=== PATIENT | male | born 1960 | race Hispanic/Latino ===

== ENCOUNTER 2016-06-27 13:56 | Emergency (ER) | payer MEDICARE, MEDICAID ==
[~2016-06-27] VITALS: Ht 172.7 cm; Wt 76.4 kg
[~2016-06-27 13:56] MED LIST: CA C1TAB28 PO; CALC-858 PO; OMEP-113 PO; ONDA8TAB10 PO
[2016-06-27 14:05] VITALS: BP 136/102; PULSE 50; RESP 26; O2SAT 100
--- NOTE | 2016-06-27 14:12 | ED.REPORT ---
HPI-Abd Pain M 40 and Over Date of Service Jun 27, 2016 ED Provider: Julio C Encinas MD Patient is a 56 year old male who presents to the ED complaining of L side abdominal pain onset yesterday. Associated symptoms include vomiting (x1). He denies fever, constipation, diarrhea, hematemesis or any other symptoms. Patient was not being cooperative with nurses and would not answer questions. He was seen in the department for similar symptoms one month ago. Nursing Notes Stated Complaint: ABDOMINAL PAIN Chief Complaint: Male Abdominal Pain Nursing Notes Reviewed: Yes Allergies: Coded Allergies: No Known Allergies (Verified Allergy, Unknown, 12/01/15) Scheduled Ca Cmb No.1/Vit D3/B-6/FA/B12 (Vitamin D3 1,000 Unit Tablet) 1 Each Tablet 1 EACH PO DAILY Calcium Carb & Cit/Vitamin D3 (Calcium + D3 ER Tablet) 1 Each Tablet.er 1 EACH PO DAILY Omeprazole Magnesium (Omeprazole) 20 Mg Capsule.dr 20 MG PO BID Ondansetron ODT (Ondansetron ODT) 8 Mg Tab.rapdis 8 MG PO QID Scheduled PRN Ibuprofen (Ibuprofen) 800 Mg Tablet 800 MG PO TID PRN PRN For Pain General Time Seen by MD: 13:59 Chief Complaint Abdominal pain Hx Obtained From: Patient Arrived By: Walk-in Sudden in Onset?: Yes Onset Occurred: Yesterday Symptom Duration: Since onset Recent Healthcare: Recent doctor visit Similar Sx Previous: Yes Risk Factors )( AAA Risk Stratification No Hypertension, No Prior AAA Risk factors reviewed Past Medical History Past Medical History Hiatal hernia Reports: GERD Reports: Diverticulitis Past Surgical History Left Inguinal Hernia Left Chest Wall Mass excision hemorrhoidectomy Smoking History Former Smoker Social History Other Social History: Local resident Ambulatory Status Independent Review of Systems Constitutional: Denies: Fever GI: Reports: Abdominal pain, Vomiting, Denies: Constipation, Diarrhea, Hematemesis Complete sys rev & neg: except as marked. Physical Exam Initial Vital Signs Vital Signs (First) Date Time Temp Pulse Resp B/P Pulse Ox O2 Delivery O2 Flow Rate FiO2 06/27/16 14:05 36.4 50 26 136/102 100 Room Air Initial VS: Reviewed Head / Eyes: Atraumatic, Normocephalic Neck: Full range of motion Skin: Warm, Dry Neurologic: Alert, Oriented, Nonfocal Psychiatric: Mood/affect normal, Behavior normal, Normal thought content General/Constitutional: Awake, Alert, Well developed Distress / Hydration: Positive: Distress mild Respiratory / Chest: Breath sounds NL, Breath sounds = bilat, No respiratory distress Cardiovascular: Heart rate NL, Regular rhythm, Heart sounds NL, No murmurs Abdomen: Soft, No guarding, No rebound Tenderness/Guarding/Rebound: Positive: Tender LLQ..., Tender RLQ..., Tender diffuse Back: No CVA tenderness Interpretation & Diagnostics Lab Results Interpretation Result Diagram: 06/27/16 1440 06/27/16 1440 Test 06/27/16 14:40 06/27/16 16:59 White Blood Count 10.9th/mm3 (3.8-10.1) Red Blood Count 4.68mil/mm3 (4.40-5.80) Hemoglobin 14.7g/dL (13.8-17.2) Hematocrit 43.5% (41.0-50.0) Mean Corpuscular Volume 92.9fL (81-100) Mean Corpuscular Hemoglobin 31.4pg (27.0-35.0) Mean Corpuscular Hemoglobin Concent 33.8% (32.0-37.0) Red Cell Distribution Width 14.4% (12.3-15.4) Platelet Count 295bil/L (150-400) Neutrophils (%) (Auto) 68.2% (40-74) Lymphocytes (%) (Auto) 24.0% (14-46) Monocytes (%) (Auto) 6.5% (4-12) Eosinophils (%) (Auto) 0.7% (0-5) Basophils (%) (Auto) 0.3% (0-3) Prothrombin Time 10.4sec (8.1-12.5) Prothromb Time International Ratio 0.97ratio Sodium Level 138mEq/L (134-144) Potassium Level 3.7mEq/L (3.5-5.2) Chloride Level 103mEq/L (97-108) Carbon Dioxide Level 19mmol/L (18-29) Blood Urea Nitrogen 16mg/dL (6-24) Creatinine 0.81mg/dL (0.76-1.27) Estimat Glomerular Filtration Rate 104mL/min (>59) Glucose Level 132mg/dL (60-99) Calcium Level 9.2mg/dL (8.5-10.1) Magnesium Level 2.1mg/dL (1.6-2.6) Total Bilirubin 0.6mg/dL (0.0-1.2) Aspartate Amino Transf (AST/SGOT) 52U/L (0-50) Alanine Aminotransferase (ALT/SGPT) 33U/L (0-44) Alkaline Phosphatase 62U/L (25-150) Total Protein 7.1g/dL (6.4-8.4) Albumin 4.2g/dL (3.4-5.0) Lipase 38U/L (13-60) Hold Lopez Top Tube Received (Received) Urine Color Straw (YELLOW) Urine Appearance Clear (CLEAR,HAZY) Urine pH 6.5 (5.0-8.0) Urine Specific Dodge 1.010 (1.003-1.035) Urine Protein Negativemg/dL (NEG,TRACE) Urine Glucose (UA) Negativemg/dL (NEGATIVE) Urine Ketones 40mg/dL (NEGATIVE) Urine Occult Blood Negative (NEGATIVE) Urine Nitrite Negative (NEGATIVE) Urine Bilirubin Negative (NEGATIVE) Urine Urobilinogen Normalmg/dL (NORMAL) Urine Leukocyte Esterase Negative (NEGATIVE) Urine RBC 0-2/hpf (0-2) Urine WBC 0-5/hpf (0-5) Urine Epithelial Cells None/hpf (NONE-MOD) Urine Crystals None seen (NONE SEEN) Urine Bacteria None/hpf (NONE-FEW) Urine Hyaline Casts None/lpf (NONE) Urine Granular Casts None seen (NONE SEEN) Urine Waxy Casts None seen (NONE SEEN) Urine Red Blood Cell Casts None seen (NONE SEEN) Urine White Blood Cell Casts None seen (NONE SEEN) Urine Mucus None seen (None Seen) Urine Trichomonas None seen (NONE SEEN) Urine Yeast None (NONE SEEN) Urinalysis Comment None Urine Culture Reflexed Not indicated Lab Results Interpretation: Utox positive for THC ECG Interpretation ECG Interpretation: Sinus rate [address], T changes Time: 14:36 Interpreted by: ED physician CT Abd / Pelvis Interpretation IMPRESSION: 1. No definite acute disease process. 2. No dilated loops of bowel. 3. No free fluid or air. 4. Hepatic steatosis. Dictated by: Vanessa Hansen MD, PhD on 06/27/2016 at 15:59 Approved by: Vanessa Hansen MD, PhD on 06/27/2016 at 16:07 Study type: Abdominal CT IV contrast Interpretation / Wet Read by: Interpret - Radiologist Re-Eval/Medical Decision Med Decision/Clinical Course 56-year-old male with diffuse abdominal pain on arrival. He was unable to give us further history. His labs are stable. His urine is negative. His CT abdomen and pelvis with no acute pathology. Repeat abdominal exam with no tenderness. His pain resolved with IV pain medications. He was discharged home with ibuprofen with return precautions. Time of Eval: 17:22 )( Re-Eval Abdomen: Soft Re-Evaluation/Progress Note: Rechecked pt. Feeling much better. Discussed plan for discharge. Patient understands and agrees with plan. All questions addressed at this time. Counseled Regarding: Diagnosis, Lab results, Need for follow-up, When/why to return to ED Discharge & Departure Primary Impression: Abdominal pain, generalized Disposition: Home Vital Signs - All Vital Signs Date Time Temp Pulse Resp B/P Pulse Ox O2 Delivery O2 Flow Rate FiO2 06/27/16 18:14 36.6 58 165/93 100 Room Air 06/27/16 16:38 36.5 56 16 179/88 100 Room Air 06/27/16 14:20 43 13 124/90 100 Room Air 06/27/16 14:05 36.4 50 26 136/102 100 Room Air )( All Prior VS Reviewed: Yes Condition: Improved Patient Instructions: Acute Abdominal Pain (ED) Additional Instructions: Thank you for untrusting us with your care. Your lab and imaging results are reassuring. There is no dangerous cause for your abdominal pain at this time. You may take up to 800 mg of Ibuprofen 3 times a day to manage your pain. Return to the emergency department if you experience nausea, vomiting, fever, chills, or any other new or worsening symptoms. Referrals: Qian Stone MD (PCP) Scribe Attestation Portions of this note were transcribed by Francisco Fischer. I, Dr. Encinas personally performed the history, physical exam and medical decision-making; I reviewed and confirmed the accuracy of the information in the transcribed note. Signed by: Francisco Fischer 06/27/16, 3144 copies to: Qian Stone MD, Ben M MD Jun 27, 2016 14:12 FRANCISCO FISCHER Jun 27, 2016 14:18
[2016-06-27] MEDS ORDERED: 0.9% Sodium Chloride 1,000 ML IV ONE (14:15)
[2016-06-27] MEDS ORDERED: Ondansetron 2 mg/mL 2 mL Inj IVPUSH PRN (14:15)
[2016-06-27 14:20] VITALS: BP 124/90; PULSE 43; RESP 13; O2SAT 100
[2016-06-27 14:52] LABS: BASOPHILS % (AUTO) 0.3 % (0-3); EOSINOPHILS % (AUTO) 0.7 % (0-5); MONOCYTES % (AUTO) 6.5 % (4-12); Mean Corpuscular Hemoglobin 31.4 pg (27.0-35.0); Mean Corpuscular Volume 92.9 fL (81-100); NEUTROPHILS % (AUTO) 68.2 % (40-74); Platelet Count 295 bil/L (150-400)
[2016-06-27 15:09] LABS: INR 0.97 ratio
[2016-06-27 15:15] LABS: Magnesium 2.1 mg/dL (1.6-2.6)
--- NOTE | 2016-06-27 16:08 | DRSVH ---
PROCEDURE: CT ABDOMEN AND PELVIS WITH CONTRAST ([id number]) INDICATIONS: abd pain TECHNIQUE: After the administration of intravenous contrast, 5 mm thick sections acquired from the diaphragm to the symphysis. 5 mm coronal and sagittal reformats were acquired. For radiation dose reduction, the following was used: automated exposure control, adjustment of mA and/or kV according to patient siz e. COMPARISON: None. FINDINGS: Image quality: Limited by absence of oral contrast and patient with low body mass index. ABDOMEN: Lung bases: Lung bases are clear. Heart size is normal. Solid organs: Liver and spleen are normal in size and enhancement. 1.1 and 0.6 cm nonenhancing lesio n is noted in the anterior-superior subsegment right lobe liver which right kidney represent small he mangiomas. Diffuse fatty infiltration liver is noted. Gallbladder is within normal limits. Biliary system is non dilated. Pancreas enhances normally. No adrenal nodules. Kidneys demonstrate normal size and enhancement, without hydronephrosis. Peritoneum and bowel: Bowel loops demonstrate normal wall thickness and caliber. No free fluid or a ir. The appendix is not definitely visualized. No definite inflammatory changes noted adjacent to th e cecum. Nodes and vessels: No retroperitoneal or mesenteric adenopathy by size criteria. Aorta and inferior vena cava are normal in size. Miscellaneous: No ventral hernias. PELVIS: Genitourinary: Bladder wall thickness is normal. Miscellaneous: No inguinal hernias or adenopathy. Metallic foreign body noted in the left hip adduct or musculature. Bones: No suspicious bony lesions. No vertebral body compression fractures. Spine degenerative disc disease and facet arthropathy are noted. IMPRESSION: 1. No definite acute disease process. 2. No dilated loops of bowel. 3. No free fluid or air. 4. Hepatic steatosis. Dictated by: Vanessa Hansen MD, PhD on 06/27/2016 at 15:59 Approved by: Vanessa Hansen MD, PhD on 06/27/2016 at 16:07
[2016-06-27 16:38] VITALS: BP 179/88; PULSE 56; RESP 16; O2SAT 100
[2016-06-27 17:14] LABS: COLOR,URINE STRAW (YELLOW)
[2016-06-27 17:15] LABS: APPEARANCE,URINE CLEAR (CLEAR,HAZY); OCCULT BLOOD,URINE NEGATIVE (NEGATIVE); PH,URINE 6.5 (5.0-8.0); UROBILINOGEN,URINE NORMAL (NORMAL)
[2016-06-27] MEDS ORDERED: IBUP800T28 PO (17:35)
[2016-06-27 18:14] VITALS: BP 165/93; PULSE 58; O2SAT 100
== END 2016-06-27 18:15 | disposition home or self-care (01) ==
LOC: SED 13:56
DX: R10.84 Generalized abdominal pain (principal); K21.9 Gastro-esophageal reflux disease without esophagitis; Z87.891 Personal history of nicotine dependence
CPT/HCPCS: 36415; 74177; 80053; 81000; 82948; 83690; 83735; 85025; 85610; 93005; 96361; 96374; 96375; 96376; 99285; J2270; J2405; J7030; Q9967